=== PATIENT | female | born 1970 | race Caucasian/White ===

== ENCOUNTER → 2018-05-17 | Outpatient (REF) | payer OTHER ==
[~2018-05-17] MED LIST: ALPRAZOLAM2 MG PO; AMBIEN10 MG PO; ATIVAN0.5 MG PO; ATIVAN1 M1 PO; BACTRIM DS1 TAB PO; DEPAKOTE ER250 MG PO; DEPO-MEDROL80 MG/ML IM; DILAUDID8 MG PO; DOXYCYCL HYC100 MG PO; EQL IBUPROFEN200 MG PO; GABAPENTIN300 M2 PO; MOTRIN800 MG/TAB PO; NABUMETONE500 MG PO; NAPROSYN500 MG PO; OMEPRAZOLE20 MG PO; RISPERDAL0.5 MG PO; ROBITUSS11 OR; SUBOXONE; TRILEPTAL150 M1 PO; TRILEPTAL150 MG PO; TYLENOL # 31 TA1 OR; TYLENOL # 31 TA1 PO; XANAX1 MG; XANAX1 MG PO; XANAX2 MG PO; ZPAK PO
[2018-05-17 13:37] LABS: BARBITURATES NEGATIVE (NEGATIVE); COCAINE POSITIVE (NEGATIVE); METHADONE NEGATIVE (NEGATIVE); OXCYCODONE POSITIVE (NEGATIVE); TETRAHYDROCANNABIONOL NEGATIVE (NEGATIVE); TRICYLIC ANTIDEPRESSANTS NEGATIVE (NEGATIVE)
== END | disposition home or self-care (01) | DRG 951 ==
LOC: LABSPEC 13:23
PROVIDERS: ATTEND Nurse Practitioner Family
DX: Z02.83 Encounter for blood-alcohol and blood-drug test (principal); F19.10 Other psychoactive substance abuse, uncomplicated

== ENCOUNTER 2019-12-08 21:57 | Emergency (ER) | payer SELFPAY ==
[~2019-12-08] VITALS: Ht 162.6 cm; Wt 56.3 kg
[2019-12-08 23:03] LABS: HEMATOCRIT 37.3 % (37.0-47.0); HEMOGLOBIN 11.6 g/dl (12.0-16.0); IMMATURE GRANULOCYTES 0.3 % (0.0-5.0); MEAN CELL VOLUME 96.4 fL CALC (80.0-100.0); MEAN CORPUSCULAR HGB CONC 31.1 g/dL CAL (32.0-36.0); NEUT# 6.39 thou/uL (2.00-7.15); RED BLOOD COUNT 3.87 mill/uL (4.20-5.60); RED CELL DISTRI WIDTH 12.2 % (11.5-15.5)
[2019-12-08 23:15] LABS: ANION GAP 10 (6-22 (CALC)); BUN 25 mg/dL (7-17); BUN/CREATININE RATIO 22 (12-20 (CALC)); CARBON DIOXIDE 27 mmol/l (22-30); CHLORIDE 99 mmol/l (95-108); CREATININE 1.1 mg/dL (0.5-1.0); GFR 53 ML/MIN (>=60 (CALC)); GFR FOR AFR.AMER. > 60 ML/MIN (>=60 (CALC)); POTASSIUM 3.6 mmol/l (3.5-5.1); SODIUM 133 mmol/l (137-146)
[2019-12-09] MEDS ORDERED: VOLTAREN75 MG PO (00:32)
[2019-12-09 00:47] VITALS: BP 138/79
== END 2019-12-09 00:46 | disposition home or self-care (01) | DRG 552 ==
LOC: ED 21:57
PROVIDERS: Family Medicine
DX: M54.5 Low back pain (principal); F14.10 Cocaine abuse, uncomplicated; F17.210 Nicotine dependence, cigarettes, uncomplicated

== ENCOUNTER 2022-02-14 15:05 | Emergency (ER) | payer SELFPAY ==
[~2022-02-14] VITALS: Ht 162.6 cm; Wt 54.5 kg
[~2022-02-14 15:05] MED LIST changes: +VOLTAREN75 MG PO
[2022-02-14 15:36] VITALS: BP 171/126
[2022-02-14 15:45] VITALS: BP 156/118
[2022-02-14] MEDS ORDERED: CLINDAMYCIN300 M1 PO (15:49)
[2022-02-14] MEDS ORDERED: BACITRACIN3.5 GM TOP (15:49)
[2022-02-14] MEDS ORDERED: FLOXIN OTIC0.3 % OT (15:49)
[2022-02-14 15:57] VITALS: BP 156/118
== END 2022-02-14 17:00 | disposition home or self-care (01) | DRG 603 ==
LOC: ED 15:05
DX: L01.00 Impetigo, unspecified (principal); H60.91 Unspecified otitis externa, right ear

== ENCOUNTER 2022-04-08 07:27 | Emergency (ER) | payer SELFPAY ==
[~2022-04-08] VITALS: Ht 162.6 cm; Wt 45.3 kg
[~2022-04-08 07:27] MED LIST changes: +BACITRACIN3.5 GM TOP; +CLINDAMYCIN300 M1 PO; +FLOXIN OTIC0.3 % OT
[2022-04-08 07:33] VITALS: BP 160/107
[2022-04-08 08:01] VITALS: BP 127/110
[2022-04-08] MEDS ORDERED: DOXY-CAPS100 MG PO (08:40)
[2022-04-08 08:42] VITALS: BP 127/110
== END 2022-04-08 08:45 | disposition home or self-care (01) | DRG 603 ==
LOC: ED 07:27
DX: L02.811 Cutaneous abscess of head [any part, except face] (principal); L02.415 Cutaneous abscess of right lower limb; Z53.29 Procedure and treatment not carried out because of patient's decision for other reasons

== ENCOUNTER 2022-10-26 09:30 | Emergency (ER) | payer SELFPAY ==
[~2022-10-26] VITALS: Ht 162.6 cm; Wt 57.0 kg
[~2022-10-26 09:30] MED LIST changes: +DOXY-CAPS100 MG PO
[2022-10-26 09:47] VITALS: BP 181/133
[2022-10-26 10:00] VITALS: BP 180/137
[2022-10-26] MEDS ORDERED: DOXY-CAPS100 MG PO (10:10)
[2022-10-26] MEDS ORDERED: MUPIROCIN2 % EX (10:10)
[2022-10-26] MEDS ORDERED: METRONIDAZOL0.751 EX (10:22)
== END 2022-10-26 10:38 | disposition home or self-care (01) | DRG 607 ==
LOC: ED 09:30
DX: L73.9 Follicular disorder, unspecified (principal); F17.210 Nicotine dependence, cigarettes, uncomplicated